=== PATIENT | female | born 1965 | race Caucasian/White ===

== ENCOUNTER 2022-07-08 20:56 | Emergency (ER) | payer BC, SELFPAY ==
[2022-07-08 21:28] VITALS: BP 125/87; PULSE 109; RESP 16; TEMP 36.7; O2SAT 97; BMI 26.6
[2022-07-08 21:55] LABS: Appearance Urine Clear; Color Urine Red; Glucose Urine UA Negative (Negative); Leukocyte Esterase Urine Large (3+) (Negative); Nitrite Urine Negative (Negative); PH 6.5 (5.0-9.0); Specific Gravity - Urine <= 1.005 (1.005-1.025); UMIC TRIGGER UACC YES; Urine Blood Large (3+) (Negative); Urine Ketones Negative (Negative); Urine Protein 100 (2+) mg/dL (Neg-Trace)
[2022-07-08 21:58] LABS: Bacteria Urine None Seen (None Seen); Hyaline Casts Urine 0-2 /LPF (0-2); RBC Urine >20 /HPF (0-2); Squamous Epithelial Cell Urine 0-2 /HPF (0-2); UACC Culture Trigger YES; WBC Urine >50 /HPF (0-5)
[2022-07-09 00:16] VITALS: BP 103/71; PULSE 82; RESP 18; TEMP 37.1; O2SAT 99
--- NOTE | 2022-07-09 00:20 | ED.FEMALEGU ---
HPI - Female Genitourinary General Chief complaint: Abdominal Pain Stated complaint: UTI? Time Seen by Provider: 07/09/22 00:08 Source: patient Mode of arrival: ambulatory Limitations: no limitations History of Present Illness HPI Narrative: 56-year-old female presents with 1 day of bright red blood in her urine and abdominal pressure. MD elicited complaint: dysuria and UTI Onset (ago): day(s) (1) Severity: mild Female Urogenital Radiation: Non-Radiating Severity scale (1-10): 2 Quality of pain: dull Vaginal discharge: none Vaginal bleeding: none Urinary symptoms: Dysuria and Hematuria Exacerbating factors: none Relieving factors: none Associated symptoms: denies other symptoms Treatment prior to arrival: none Sexual activity: Yes Patient : No Related Data Previous Rx's Medication Instructions Recorded cefuroxime axetil 500 mg tablet 500 mg PO Q12H 7 days #14 tabs 07/09/22 Allergies Allergy/AdvReac Type Severity Reaction Status Date / Time No Known Allergies Allergy Verified 07/09/22 00:16 Review of Systems Review of Systems: Constitutional: No Fever, No Chills Cardiovascular: No Chest Pain, No SOB Respiratory: No Cough, No Dyspnea Gastrointestinal: No Nausea, No Vomiting, No Diarrhea, No abdominal Pain Genitourinary: Positive Dysuria, positive Hematuria Neuro: No Weakness, No Dizziness, No Headache Yes all other systems are reviewed and are negative [facility] Past Medical History Attestation statement: The following information was validated with the patient. Source: old records reviewed Social History Social History Advance Directives: No Advance Directives Information Provided: Yes Patient : No Physical Exam Vital Signs: Vital Signs: Last Vital Signs Temp 98.7 F 07/09/22 00:16 Pulse 82 07/09/22 00:16 Resp 18 07/09/22 00:16 BP 103/71 07/09/22 00:16 Pulse Ox 99 07/09/22 00:16 O2 Del Method 07/09/22 00:16 BMI result Body Mass Index 26.6 Appearance: Alert. Oriented X3. No acute distress. Eyes: Pupils equal, round and reactive to light. Neck: Normal inspection. Neck supple. CVS: Normal heart rate and rhythm. Respiratory: No respiratory distress. Abdomen: Soft and nontender. No distention or rigidity. Negative Street's McBurney's. No CVA tenderness to palpation. Skin: Skin warm and dry. Normal skin color. Extremities: No lower extremity edema. Gait well-balanced well coordinated. Neuro: No motor deficit. No sensory deficit. Cranial nerves 2-12 intact Course Course Course Narrative: 56-year-old female presents with 1 day of dysuria and hematuria. States that she has been holding her urine because she has had to use a public restroom that she feels has not been cleaned properly. She lives in [place] and is here for work. She did not have prior history of recurrent UTIs. She does not report abdominal pain, fevers, chills, history of bladder cancer. Patient is menopausal and has not had a cycle for over 5 years. Physical exam is negative for acute findings, abdomen is soft nontender, no palpable masses, no CVA tenderness to palpation. No rigidity or distention. No suprapubic tenderness. Patient is afebrile, nontoxic, with vital signs within normal limits. Urinalysis completed while she was in the emergency department waiting room which indicates a large amount of heme and leukocyte esterase. Patient is sexually active with her , no risk of STI at this time. No vaginal discharge. Considering her physical exam is benign, low likelihood of pyelonephritis, and kidney stones. Patient has had 1 day of heme, is afebrile, with a normal heart rate at this time, 82, negative physical abdominal exam, imaging is not indicated at this time. Plan of care is to treat with cefuroxime, and have patient follow-up with her primary care physician when she returns home for test of cure. She does understand that she needs repeat urinalysis if heme continues she needs to be ruled out for bladder cancer. Patient verbalizes understanding of and agrees plan of care discharge home. Verbalized understanding of signs and symptoms indicating need for emergent intervention. Medications Administered Discontinued Medications Generic Name Dose Route Start Last Admin Trade Name Freq PRN Reason Stop Dose Admin Cefuroxime Axetil 500 mg 07/09/22 00:16 07/09/22 00:29 Cefuroxime Axetil 500 Mg Tablet PO 07/09/22 00:17 500 mg ONCE ONE Administration Medical Decision Making Differential Diagnosis Differential Diagnoses: The differential diagnosis associated with the presentation includes Kidney stones, UTI, pyelonephritis, bladder cancer Lab Data [facility] Lab Attestation statement: I reviewed the patient's lab results. Labs: Lab Results 07/08/22 Range/Units 21:46 Urine Color Red A Urine Appearance Clear Urine pH 6.5 (5.0-9.0) Ur Specific [place] <= 1.005 (1.005-1.025) Urine Protein 100 (2+) H (Neg-Trace) mg/dL Urine Glucose (UA) Negative (Negative) mg/dL Urine Ketones Negative (Negative) mg/dL Urine Blood Large (3+) H (Negative) Urine Nitrite Negative (Negative) Ur Leukocyte Esterase Large (3+) H (Negative) Urine RBC >20 H (0-2) /HPF Urine WBC >50 H (0-5) /HPF Ur Squamous Epith Cells 0-2 (0-2) /HPF Urine Bacteria None Seen (None Seen) Hyaline Casts 0-2 (0-2) /LPF External Record Review Patient has no prior records here Prescription Management I considered prescription management with: Antibiotic Discharge Plan Discharge Clinical Impression: UTI (urinary tract infection) Patient Disposition: Home, Self-Care Instructions: Urinary Tract Infection in Women (ED) Additional Instructions: You were evaluated for hematuria. Your urine tested positive for blood and leukocyte esterase consistent with urinary tract infection. Please take cefuroxime 500 mg twice a day for the next 5 days. Please present to her primary care's office for repeat urinalysis to ensure that your urinary tract infection has resolved after you complete the entire course of your medications. Your symptoms are most consistent with a urinary tract infection however Blood in your urine could be an indication of bladder cancer or kidney problems. Drink plenty of fluids. Thank you for choosing this emergency department for evaluation. Please follow-up with primary care physician as needed. Return to the emergency department for any new, concerning, or worsening symptoms. Prescriptions: New cefuroxime axetil 500 mg tablet 500 mg PO Q12H 7 Days Qty: 14 0RF Interventions: ED Discharge Assessment Last Done: 07/09/22 00:41 Discharge Date/Time: 07/09/22 00:42
== END 2022-07-09 00:42 | disposition home or self-care (01) ==
PROVIDERS: Emergency Provider Emergency Medicine
DX: N39.0 Urinary tract infection, site not specified (principal); Z79.899 Other long term (current) drug therapy
CPT/HCPCS: 81001; 87086; 87088; 87186; 99283